=== PATIENT | female | born 1975 | race Two or more races ===

== ENCOUNTER 2021-03-10 21:04 | Emergency (ER) | payer OTHER ==
[~2021-03-10] VITALS: Ht 160 cm; Wt 62.1 kg
[2021-03-10] MEDS ORDERED: MITIGARE0.6 MG PO (21:09)
[2021-03-11] MEDS ORDERED: CEPHALEXIN500 MG PO (02:23)
[2021-03-11] MEDS ORDERED: KETO10TA2 PO (02:23)
== END 2021-03-11 02:36 ==
LOC: ER 21:04
DX: N39.0 Urinary tract infection, site not specified (principal); K59.09 Other constipation; R30.0 Dysuria